=== PATIENT | male | born 1990 | race Caucasian/White ===

== ENCOUNTER 2021-09-11 22:27 | Emergency (ER) | payer SELFPAY ==
--- OUTSIDE RECORDS SUMMARY | 2021-09-11 22:29 | XMS REPORT | Continuity of Care Document ---
:1990 Author Organization [facility] t Address [address] [place] [address] Care Team Providers Name Role Phone Malinda Carey Attending Clinician Malinda LECHUGA Attending Clinician Unavailable Problems Condition Condition Condition Status Onset Resolution Last Treating Co mments Source Name Details Category Date Date Treatment Clinician Date No known No known Disease Unive rs active active ity of problems problems [facility] Allergies, Adverse Reactions, Alerts Allergy Allergy Status Severity Reaction(s) Onset Inactive Treating Comm ents Source Name Type Date Date Clinician NO KNOWN Drug Active Univers ALLERGIE Class ity of S [facility] Social History Social Habit Start Date Stop Date Quantity Comments Source Exposure to Not sure [facility] SARS-CoV-2 (event) [facility] Tobacco use and 2020-09-10 2020-09-10 Never used Universit y of exposure 00:00:00 00:00:00 [facility] Alcohol intake 2020-09-10 2020-09-10 Current drinker Unive rsity of 00:00:00 00:00:00 of alcohol [facility] (finding) Branch Cigarettes smoked 2020-09-10 2020-09-10 Univers ity of current (pack per 00:00:00 00:00:00 ) - Reported Branch Cigarette 2020-09-10 2020-09-10 University of pack-years 00:00:00 00:00:00 [facility] Alcohol Comment 2015-02-18 2015-02-18 daily Universit y of 00:00:00 00:00:00 [facility] Sex Ass[birth year] At [birth year] Universit y of 00:00:00 00:00:00 [facility] Smoking Status Start Date Stop Date Source Current every day smoker 2020-09-10 00:00:00 [facility] Medications Ordered Filled Start Stop Current Ordering Indication Dosage Frequency Signature Comments Components Source Medication Medication Date Date Medication? Clinician (SIG) Name Name ibuprofen 600mg 600 mg, Uni vers (IBU) 09-10 Oral, ity of tablet 600 17:45: 16:44 ONCE, 1 Ronal as mg 00 :00 dose, Wed Medical 09/10/20 at Branch 1245, LAURO pentazocine 2014-04 Yes 1{tbl} Take 1 Tab Univers -naloxone 1-10 by mouth ity of (TALWIN NX) 00:00: every 4 Ronal as 50-0.5 mg 00 (four) Medical tablet hours as Branch needed for Pain. Vital Signs Vital Name Observation Time Observation Value Comments Source Systolic blood 2020-09-10 16:34:00 135 mm[Hg] [facility] Diastolic blood 2020-09-10 16:34:00 62 mm[Hg] [facility] Heart rate 2020-09-10 16:34:00 110 /min [facility] Body temperature 2020-09-10 16:34:00 36.83 [place] [facility] Respiratory rate 2020-09-10 16:34:00 18 /min [facility] Body weight 2020-09-10 16:34:00 104.327 kg [facility] BMI 2020-09-10 16:34:00 32.08 kg/m2 [facility] Oxygen saturation in 2020-09-10 16:34:00 100 /min [facility] Arterial blood by [facility] Pulse oximetry Branch Procedures Procedure Date / Time Performed Performing Clinician Jose post XR HAND 3+ VW LEFT 2020-09-10 16:56:04 Ronel Ross [facility] ASSIGNMENT OF BENEFITS 2020-09-10 16:31:35 Doctor Unassigned, No [facility] NOTICE OF PRIVACY 2020-09-10 16:31:18 Doctor Unassigned, No [facility] CONSENT/REFUSAL FOR 2020-09-10 16:30:57 Doctor Unassigned, No [facility] DIAGNOSIS AND [facility] TREATMENT Encounters Start End Encounter Admission Attending Care Care Encounter Source Date/Time Date/Time Type Type Clinicians Facility Department ID 2020-09-10 2020-09-10 Emergency Ankush ILFRANCOIS [id number] Univers 11:36:00 13:07:00 Olga Malinda Faith [id number] i ty of Yasmeen [id number] [facility] [id number] [facility] 084 Branch 2020-09-10 2020-09-10 Emergency X ANKUSH ILFRANCOIS ERT [id number] Univers 11:36:00 11:36:00 OLGA ity of [facility] Results Test Description Test Time Test Comments Results Result [facility] e Comments XR HAND 3+ VW HISTORY: Left Universi ty of LEFT 2 adnexal pain. S/P [facility] edical 17:05:29 hitting a wall. Branch FINDINGS: AP, lateral, oblique views of left hand showed no acute fractureor dislocation. Old, healed fracture deformity in the shaft of metacarpalbone of the little finger noted. Soft tissue swelling noted on the dorsumof the hand. No significant changes of arthritis. Incidental note of 6 mmcystic lesion in the distal portion of the scaphoid bone, appears benign. CONCLUSIONS: No acute fracture or dislocation in left hand. [facility], Radiant Results Inft User - 09/10/2020 12:06 PM CDT HISTORY: Left adnexal pain. S/P hitting a wall.FINDINGS: AP, lateral, oblique views of left hand showed no acute fractureor dislocation. Old, healed fracture deformity in the shaft of metacarpalbone of the little finger noted. Soft tissue swelling noted on the dorsumof the hand. No significant changes of arthritis. Incidental note of 6 mmcystic lesion in the distal portion of the scaphoid bone, appears benign.CONCLUSIONS: No acute fracture or dislocation in left hand.
[2021-09-11 23:53] LABS: Absolute Lymphocytes (CBC) 2.8 K/uL (0.7-4.9); Hematocrit 46.8 % (39.6-49.0); Lymphocytes % 31.1 % (15.3-44.8); MPV 6.8 fL (7.6-11.3); RBC Red Blood Cell Count 4.89 M/uL (4.33-5.43)
[2021-09-12 00:11] LABS: Albumin 2.9 g/dL (3.4-5.0); Bilirubin Total 0.4 mg/dL (0.2-1.0); Potassium 3.7 mmol/L (3.5-5.1); Protein, Total 6.4 g/dL (6.4-8.2)
--- NOTE | 2021-09-12 04:14 | ER ---
Nurse's Notes [facility] Name: Joaquin Lovett Age: 30 yrs Sex: Male : 1990 Arrival Date: 09/11/2021 Time: 22:29 Bed 15 Private MD: Diagnosis: Abdominal pain, unspecified Presentation: 09/11 23:51 Chief complaint: Patient states: "I had a hiatal hernia about about 4 years ago and I vc1 think I have another one. I was asleep then started coughing and woke up and felt like it ripped. It has been hurting for the last 3 days any time I cough or sneeze.". Coronavirus screen: Vaccine status: Patient reports being unvaccinated. At this time, the client does not indicate any symptoms associated with coronavirus-19. Ebola Screen: No symptoms or risks identified at this time. Initial Sepsis Screen: Does the patient meet any 2 criteria? No. Patient's initial sepsis screen is negative. Does the patient have a suspected source of infection? No. Patient's initial sepsis screen is negative. Risk Assessment: Do you want to hurt yourself or someone else? Patient reports no desire to harm self or others. Onset of symptoms was September 09, 2021. 23:51 Method Of Arrival: Ambulatory vc1 23:51 Acuity: RAFAL 3 vc1 Triage Assessment: 23:56 General: Appears in no apparent distress. uncomfortable, Behavior is calm, cooperative, vc1 appropriate for age. Pain: Complains of pain in epigastric area Pain radiates to right upper quadrant and left upper quadrant Pain currently is 3 out of 10 on a pain scale. at worst was 20 out of 10 on a pain scale. Quality of pain is described as sharp. Neuro: No deficits noted. Cardiovascular: No deficits noted. Respiratory: Airway is patent Respiratory effort is even, unlabored, Respiratory pattern is regular, symmetrical. GI: Abdomen is tender to palpation in epigastric area Guarding noted in epigastric area. : No deficits noted. Derm: No deficits noted. Musculoskeletal: No deficits noted. Historical: - Allergies: 23:55 No Known Allergies; vc1 - Home Meds: 23:55 None [Active]; vc1 - PMHx: 23:55 None; vc1 - PSHx: 23:55 None; vc1 - Immunization history:: Adult Immunizations up to date, Client reports having NOT received the Covid vaccine. Flu vaccine is not up to date. It has been more than one year since last vaccine. - Social history:: Smoking status: Patient denies any tobacco usage or history of. Screenin:58 Abuse screen: Denies threats or abuse. Nutritional screening: No deficits noted. vc1 Tuberculosis screening: No symptoms or risk factors identified. Fall Risk None identified. Assessment: 09/12 00:00 Reassessment: See triage assessment. vc1 01:00 Reassessment: No changes from previously documented assessment. Patient and/or family vc1 updated on plan of care and expected duration. Pain level reassessed. Patient is alert, oriented x 3, equal unlabored respirations, skin warm/dry/pink. 02:00 Reassessment: No changes from previously documented assessment. vc1 03:00 Reassessment: Patient and/or family updated on plan of care and expected duration. Pain vc1 level reassessed. Patient is alert, oriented x 3, equal unlabored respirations, skin warm/dry/pink. Vital Signs: 09/11 23:51 BP 145 / 104; Pulse 83; Resp 18; Temp 98.2(O); Pulse Ox 97% on R/A; Weight 117.93 kg; vc1 Height 5 ft. 11 in. (180.34 cm); Pain 3/10; 09/12 00:00 BP 136 / 92; Pulse 78; Resp 16; Pulse Ox 98% on R/A; vc1 02:00 BP 132 / 93; Pulse 76; Resp 17; Pulse Ox 98% ; vc1 03:00 BP 127 / 71; Pulse 68; Resp 17; Pulse Ox 96% ; vc1 09/11 23:51 Body Mass Index 36.26 (117.93 kg, 180.34 cm) vc1 ED Course: 09/11 22:29 Patient arrived in ED. ja2 22:40 Ramana Palafox DO is Attending Physician. ms3 23:10 Boni Maddox PA is PHCP. jmm 23:31 Mary Cartwright, CRISPIN is Primary Nurse. vc1 23:44 CBC with Diff Sent. vc1 23:44 CMP Sent. vc1 23:44 Lipase Sent. vc1 23:55 Triage completed. vc1 23:56 Arm band placed on right wrist. vc1 23:58 Inserted saline lock: 20 gauge in right antecubital area, using aseptic technique. vc1 Blood collected. 09/12 01:06 CT Abd/Pelvis - IV Contrast Only In Process Unspecified. EDMS 04:13 William Krause DO is Referral Physician. ms3 Administered Medications: No medications were administered Outcome: 04:13 Discharge ordered by MD. ms3 05:14 Patient left the ED. vc1 Signatures: Dispatcher [employer] EDMS Boni Maddox PA PA jmm Sims, Marcus, DO DO ms3 Judi King Vanessa, RN RN vc1
--- NOTE | 2021-09-12 04:15 | EDPHYS ---
Physician Documentation [facility] Name: Joaquin Lovett Age: 30 yrs Sex: Male : 1990 Arrival Date: 09/11/2021 Time: 22:29 Bed 15 Private MD: ED Physician Ramana Palafox HPI: 09/11 23:12 This 30 yrs old Male presents to ER via Unassigned with complaints of Abdominal Problem.jmm 23:12 The patient presents with abdominal pain. Onset: The symptoms/episode began/occurred jmm gradually, 3 day(s) ago. The symptoms do not radiate. Associated signs and symptoms: Pertinent negatives: nausea and vomiting, diarrhea, fever. The symptoms are described as tearing pain. Modifying factors: The symptoms are alleviated by nothing, the symptoms are aggravated by nothing. The patient has experienced a previous episode. Historical: - Allergies: 23:55 No Known Allergies; vc1 - Home Meds: 23:55 None [Active]; vc1 - PMHx: 23:55 None; vc1 - PSHx: 23:55 None; vc1 - Immunization history:: Adult Immunizations up to date, Client reports having NOT received the Covid vaccine. Flu vaccine is not up to date. It has been more than one year since last vaccine. - Social history:: Smoking status: Patient denies any tobacco usage or history of. ROS: 09/12 00:04 Constitutional: Negative for fever, chills, and weight loss, Cardiovascular: Negative jmm for chest pain, palpitations, and edema, Respiratory: Negative for shortness of breath, cough, wheezing, and pleuritic chest pain. Abdomen/GI: Positive for abdominal pain. All other systems are negative. Exam: 00:04 Constitutional: This is a well developed, well nourished patient who is awake, alert, jmm and in no acute distress. Head/Face: atraumatic. Eyes: EOMI, no conjunctival erythema appreciated ENT: Moist Mucus Membranes Neck: Trachea midline, Supple Chest/axilla: Normal chest wall appearance and motion. Cardiovascular: Regular rate and rhythm. No edema appreciated Respiratory: Normal respirations, no respiratory distress appreciated 00:04 Back: Normal ROM Skin: General appearance color normal MS/ Extremity: Moves all extremities, no obvious deformities appreciated, no edema noted to the lower extremities Neuro: Awake and alert Psych: Behavior is normal, Mood is normal, Patient is cooperative and pleasant 00:04 Abdomen/GI: Inspection: abdomen appears normal, Bowel sounds: normal, Palpation: soft, moderate abdominal tenderness, in the right upper quadrant and left upper quadrant. Vital Signs: 09/11 23:51 BP 145 / 104; Pulse 83; Resp 18; Temp 98.2(O); Pulse Ox 97% on R/A; Weight 117.93 kg; vc1 Height 5 ft. 11 in. (180.34 cm); Pain 3/10; 09/12 00:00 BP 136 / 92; Pulse 78; Resp 16; Pulse Ox 98% on R/A; vc1 02:00 BP 132 / 93; Pulse 76; Resp 17; Pulse Ox 98% ; vc1 03:00 BP 127 / 71; Pulse 68; Resp 17; Pulse Ox 96% ; vc1 09/11 23:51 Body Mass Index 36.26 (117.93 kg, 180.34 cm) vc1 MDM: 09/11 23:13 Patient medically screened. [facility] 09/12 00:05 Data reviewed: vital signs, nurses notes. [facility] 04:14 Counseling: I had a detailed discussion with the patient and/or guardian regarding: the ms3 historical points, exam findings, and any diagnostic results supporting the discharge/admit diagnosis, lab results, radiology results, to return to the emergency department if symptoms worsen or persist or if there are any questions or concerns that arise at home. ED course: Discussed labs,CT, physical exam findings with patient. Patient to follow-up with primary care physician in 2 to 3 days. Patient understands and agrees with plan. All questions were answered. Return precautions discussed include worsening symptoms, or any other concerns. On reevaluation patient is alert and oriented x4, in no apparent distress, nontoxic-appearing, speaking full sentences, ambulatory in emergency department.. 09/11 23:14 Order name: CBC with Diff; Complete Time: 23:59 [facility] 09/11 23:14 Order name: CMP; Complete Time: 00:16 [facility] 09/11 23:14 Order name: Lipase; Complete Time: 00:16 [facility] 09/11 23:14 Order name: CT Abd/Pelvis - IV Contrast Only [facility] 09/11 23:14 Order name: IV Saline Lock; Complete Time: 23:44 [facility] 09/11 23:14 Order name: Labs collected and sent; Complete Time: 23:44 larissa Administered Medications: No medications were administered Disposition: 04:14 Co-signature as Attending Physician, Ramana Palafox DO. ms3 Disposition Summary: 09/12/21 04:13 Discharge Ordered Location: Home ms3 Condition: Stable ms3 Diagnosis - Abdominal pain, unspecified ms3 Followup: ms3 - With: William Krause DO - When: 2 - 3 days - Reason: Re-evaluation by your physician Discharge Instructions: - Discharge Summary Sheet ms3 - Abdominal Pain, Adult ms3 Forms: - Medication Reconciliation Form ms3 - Thank You Letter ms3 - Antibiotic Education ms3 - Prescription Opioid Use ms3 Signatures: Dispatcher [employer] EDBoni Bean PA PA jmm Sims, Marcus, DO DO ms3 Mary Cartwright, RN RN vc1
[2021-09-12 05:23] VITALS: TEMP 98.2
[2021-09-12 05:30] VITALS: BP 127/71; O2SAT 96
--- NOTE | 2021-09-14 11:54 | RAD REPORT ---
EXAM DESCRIPTION: CT - Abdomen Pelvis W Contrast - 09/12/2021 6:35 am CLINICAL HISTORY: The patient is 30 years old and is Male; Abdominal pain, acute, nonlocalized TECHNIQUE: Axial computed tomography images of the abdomen and pelvis with intravenous contrast. S agittal and coronal reformatted images were created and reviewed. This CT exam was performed using one or more of the following dose reduction techniques: automated exposure control, adjustment of t he mA and/or kV according to patient size, and/or use of iterative reconstruction technique. COMPARISON: No relevant prior studies available. FINDINGS: Lung bases: Unremarkable. No mass. No consolidation.ABDOMEN: Liver: Unremarkab le. No mass. Gallbladder and bile ducts: Unremarkable. No calcified stones. No ductal dilat ion. Pancreas: Unremarkable. No mass. No ductal dilation. Spleen: Unremarkable. No sple nomegaly. Adrenals: Unremarkable. No mass. Kidneys and ureters: Unremarkable. No solid ma ss. No hydronephrosis. Stomach and bowel: Mucosal thickening involving the proximal to mid smal l bowel. Submucosal fatty infiltration in the transverse and right colon. No obstruct ion.PELVIS: Appendix: The appendix is normal. Bladder: Unremarkable. No mass. Reproduct graeme: Right hydrocele. ABDOMEN and PELVIS: Intraperitoneal space: Unremarkable. No free air. No significant fluid c ollection. Bones/joints: No acute fracture. No dislocation. Soft tissues: Unremarkable. V asculature: Unremarkable. No abdominal aortic aneurysm. Lymph nodes: Unremarkable. No enlar ged lymph nodes. IMPRESSION: 1. Mucosal thickening involving the proximal to mid small bowel. Correlate with any concern for enteritis. 2. Right hydrocele. Electronically signed by: Mychal Cruz MD 09/12/2021 1:35 AM CDT Due to temporary technical issues with the PACS/Fluency reporting system, reports are being signed by the in house radiologist without review as a courtesy to ensure prompt reporting. The interpreting r adiologist is fully responsible for the content of the report.
== END 2021-09-12 05:14 | disposition home or self-care (01) ==
LOC: ER 22:27
DX: R10.10 Upper abdominal pain, unspecified (principal)
CPT/HCPCS: 36415; 74177; 80053; 83690; 85025; 99283; Q9967